=== PATIENT | male | born 1950 | race Caucasian/White ===

== ENCOUNTER 2021-09-01 07:11 | Inpatient (IN) | payer MEDICARE, OTHER ==
[~2021-09-01] VITALS: Ht 175.3 cm; Wt 63.5 kg
[~2021-09-01 07:11] MED LIST: ACET-54 PO; CALC-17 PO; DICL100G16 TP; DICL75TA5 PO; DIPH50CA37 PO; DOCU-265 PO; FEXO-65 PO; FLUT16SP BNOSTRILS; IBUP-1955 PO; OMEG1CAP74 PO; SIMV-46 PO
[2021-09-01] MEDS ORDERED: ONDANSETRON 4 MG/2 ML VIAL IV ONE (07:30)
[2021-09-01] MEDS ORDERED: GLUCAGON,HUMAN RECOMBINANT 1 MG VIAL IVP ONE (07:30)
[2021-09-01] MEDS ORDERED: PANTOPRAZOLE SODIUM 40 MG VIAL IV ONE (07:30)
[2021-09-01] MEDS ORDERED: BENZ1LOZ58 PO (07:31)
[2021-09-01 07:37] LABS: HEMATOCRIT 35.2 % (36.7-47.1); MEAN CORPUSCULAR HEMOGLOBIN 31.4 uug (23.8-33.4); MEAN CORPUSCULAR VOLUME 91.2 fL (73.0-96.2); PLATELET COUNT (AUTO) 344 K/uL (152-348)
[2021-09-01 07:45] LABS: CARBON DIOXIDE 29 mmol/L (21-32); CHLORIDE 103 mmol/L (98-107); CREATININE 0.8 mg/dL (0.6-1.3); GLUCOSE 94 mg/dL (74-106); POTASSIUM 4.1 mmol/L (3.5-5.1); UREA NITROGEN, BLOOD 21 mg/dL (7-18)
[2021-09-01] MEDS ORDERED: ALPRAZOLAM 0.25 MG TABLET PO ONE (07:45)
[2021-09-01] MEDS ORDERED: ALBUTEROL SULFATE 8 GM HFA.AER.AD IH PRN (07:45)
[2021-09-01 07:54] LABS: ALANINE AMINOTRANSFERASE 16 U/L (16-63); ALKALINE PHOSPHATASE 118 U/L (50-136); ASPARTATE AMINOTRANSFERASE 28 U/L (15-37); BILIRUBIN,DIRECT 0.1 mg/dL (0.0-0.2); BILIRUBIN,TOTAL 0.4 mg/dL (0.2-1.0); LIPASE 116 U/L (73-393); TOTAL PROTEIN, SERUM 7.4 g/dL (6.4-8.2)
[2021-09-01] MEDS ORDERED: ONDANSETRON 4 MG/2 ML VIAL ONE (07:58)
[2021-09-01] MEDS ORDERED: PANTOPRAZOLE SODIUM 40 MG VIAL ONE (07:58)
[2021-09-01] MEDS ORDERED: GLUCAGON,HUMAN RECOMBINANT 1 MG VIAL ONE (07:58)
[2021-09-01] MEDS ORDERED: ALPRAZOLAM 0.25 MG TABLET ONE (07:59)
[2021-09-01] MEDS ORDERED: ALBUTEROL SULFATE 8 GM HFA.AER.AD ONE (08:00)
[2021-09-01 08:12] LABS: *BILIRUBIN,URIN NEGATIVE (NEGATIVE); *BLOOD, URINE NEGATIVE (NEGATIVE); *CLARITY,URINE CLEAR (CLEAR); *COLOR,URINE YELLOW (YELLOW); *KETONES,URINE NEGATIVE (NEGATIVE); *UROBILINOGEN,URINE 0.2 E.U./dl (NORMAL); LEUKOCYTE ESTERASE ,URINE NEGATIVE (NEGATIVE); NITRITE, URINE NEGATIVE (NEGATIVE); UGLUCOSE NEGATIVE (NEGATIVE)
[2021-09-01] MEDS ORDERED: NICOTINE 14 MG/24HR PATCH TD ONE (08:19)
[2021-09-01] MEDS ORDERED: NICOTINE 14 MG/24HR PATCH TD SCH (09:00)
[2021-09-01 10:45] VITALS: BP 107/64
[2021-09-01 11:57] VITALS: BP 119/60
[2021-09-01] MEDS ORDERED: ALBUTEROL SULFATE 2.5 MG/3 ML NEBU NEB PRN (14:00)
[2021-09-01] MEDS ORDERED: ACETAMINOPHEN 650 MG SUPP.RECT RC PRN (14:00)
[2021-09-01] MEDS ORDERED: MORPHINE SULFATE 2 MG/1 ML DISP.SYRIN IV PRN (14:00)
[2021-09-01] MEDS ORDERED: ONDANSETRON 4 MG/2 ML VIAL IV PRN (14:00)
[2021-09-01] MEDS ORDERED: diphenhydrAMINE 50 MG/1 ML VIAL IV PRN (15:30)
[2021-09-01] MEDS: IV D5/ 0.9% NACL 1,000 ML IV PRN (15:38)
[2021-09-01 16:30] VITALS: BP 113/72
[2021-09-01 20:18] VITALS: BP 135/62
[2021-09-02 00:03] VITALS: BP 115/72
[2021-09-02 04:18] VITALS: BP 125/80
[2021-09-02] MEDS: IV D5/ 0.9% NACL 1,000 ML IV PRN (06:17)
[2021-09-02 06:30] LABS: HEMATOCRIT 33.3 % (36.7-47.1); MEAN CORPUSCULAR HEMOGLOBIN 31.2 uug (23.8-33.4); MEAN CORPUSCULAR VOLUME 90.3 fL (73.0-96.2); PLATELET COUNT (AUTO) 346 K/uL (152-348)
[2021-09-02 06:44] LABS: BILIRUBIN,TOTAL 0.4 mg/dL (0.2-1.0); CREATININE 0.9 mg/dL (0.6-1.3); MAGNESIUM 2.1 mg/dL (1.8-2.4); PHOSPHOROUS 3.5 mg/dL (2.5-4.9); POTASSIUM 4.4 mmol/L (3.5-5.1); TOTAL PROTEIN, SERUM 6.5 g/dL (6.4-8.2)
[2021-09-02 06:47] LABS: THYROID STIMULATING HORMONE 1.62 mIU/mL (0.358-3.740)
[2021-09-02] MEDS: NICOTINE 21 MG/24HR PATCH TD SCH (09:07)
[2021-09-02] MEDS: PANTOPRAZOLE SODIUM 40 MG VIAL IV SCH (09:07)
[2021-09-02 12:09] VITALS: BP 107/59
[2021-09-02 16:13] VITALS: BP 93/51
[2021-09-02 20:53] VITALS: BP 109/72
[2021-09-03 00:38] VITALS: BP 148/83
[2021-09-03] MEDS: HYDROMORPHONE 1 MG/1 ML DISP.SYRIN IV PRN (02:25)
[2021-09-03 04:43] VITALS: BP 105/72
[2021-09-03] MEDS: PANTOPRAZOLE SODIUM 40 MG VIAL IV SCH (08:22)
[2021-09-03] MEDS: NICOTINE 21 MG/24HR PATCH TD SCH (08:22)
[2021-09-03 11:34] VITALS: BP 115/71
[2021-09-03 16:00] VITALS: BP 120/61
[2021-09-03 20:28] VITALS: BP 116/74
[2021-09-04 04:42] VITALS: BP 113/65
[2021-09-04] MEDS: PANTOPRAZOLE SODIUM 40 MG TABLET.DR PO SCH (06:19)
[2021-09-04 06:36] LABS: HEMATOCRIT 34.5 % (36.7-47.1); MEAN CORPUSCULAR HEMOGLOBIN 31.5 uug (23.8-33.4); MEAN CORPUSCULAR VOLUME 90.5 fL (73.0-96.2); PLATELET COUNT (AUTO) 345 K/uL (152-348)
[2021-09-04 07:09] LABS: CREATININE 0.8 mg/dL (0.6-1.3); MAGNESIUM 2.1 mg/dL (1.8-2.4); PHOSPHOROUS 3.3 mg/dL (2.5-4.9); POTASSIUM 4.3 mmol/L (3.5-5.1)
[2021-09-04] MEDS: NICOTINE 21 MG/24HR PATCH TD SCH (09:22)
[2021-09-04 09:39] VITALS: BP 116/78
[2021-09-04] MEDS ORDERED: LIDOCAINE-MPF 2% 5 ML VIAL ONE (11:25)
[2021-09-04] MEDS ORDERED: PROPOFOL 200 MG/20 ML BOTTLE ONE (11:25)
[2021-09-04] MEDS: SUCRALFATE 1 G/10 ML LIQUID UDC GT SCH ×3 (11:56→20:46)
[2021-09-04 13:59] VITALS: BP 122/68
[2021-09-04 18:10] VITALS: BP 103/58
[2021-09-04 20:24] VITALS: BP 112/71
[2021-09-05] MEDS: HYDROMORPHONE 1 MG/1 ML DISP.SYRIN IV PRN (01:39)
[2021-09-05 04:24] VITALS: BP 125/62
[2021-09-05] MEDS: PANTOPRAZOLE SODIUM 40 MG TABLET.DR PO SCH (06:21)
[2021-09-05] MEDS: SUCRALFATE 1 G/10 ML LIQUID UDC GT SCH ×2 (06:31→11:34)
[2021-09-05] MEDS ORDERED: SUCR1ORA GT (09:30)
[2021-09-05] MEDS ORDERED: MULT-594 PO (09:30)
[2021-09-05] MEDS ORDERED: PANT40TA49 PO (09:30)
[2021-09-05] MEDS ORDERED: ALBU2.5V7 NEB (09:30)
[2021-09-05] MEDS: NICOTINE 21 MG/24HR PATCH TD SCH (09:55)
== END 2021-09-05 12:15 | DRG 392 ==
LOC: ER 07:27 → TELE3 09:35 → MEDSURG3 09-03 18:21
PROVIDERS: ADMIT Internal Medicine; ATTEND Internal Medicine
PROC: 0D758ZZ Dilation of Esophagus, Via Natural or Artificial Opening Endoscopic (ICD-10-PCS; principal; 2021-09-04)
DX: K22.2 Esophageal obstruction (principal); K44.9 Diaphragmatic hernia without obstruction or gangrene; R62.7 Adult failure to thrive; Z68.20 Body mass index [BMI] 20.0-20.9, adult; E78.5 Hyperlipidemia, unspecified; F20.9 Schizophrenia, unspecified; K29.70 Gastritis, unspecified, without bleeding; Z20.822 Contact with and (suspected) exposure to COVID-19; R13.10 Dysphagia, unspecified; D64.9 Anemia, unspecified; J44.9 Chronic obstructive pulmonary disease, unspecified; Z87.891 Personal history of nicotine dependence
CPT/HCPCS: 36415; 71045; 71250; 83550; 83690; 83735; 84100; 84443; 84484; 85025; 85610; 93005; A4663; C9113; G0378; J1170; J1200; J1610; J2405; J3490; J3535; J7042